=== PATIENT | male | born 1995 | race Caucasian/White ===

== ENCOUNTER 2023-12-28 17:22 | Emergency (ER) | payer SELFPAY ==
[~2023-12-28] VITALS: Ht 172.7 cm; Wt 61.3 kg
[2023-12-28 17:23] VITALS: BP 122/80; TEMP 97.6; O2SAT 98
== END 2023-12-28 19:30 | disposition left against medical advice (07) ==
LOC: M ED 17:22
DX: Z53.21 Procedure and treatment not carried out due to patient leaving prior to being seen by health care provider (principal)

== ENCOUNTER 2023-12-29 09:15 | Emergency (ER) | payer SELFPAY ==
[~2023-12-29] VITALS: Ht 172.7 cm; Wt 62.1 kg
[2023-12-29 11:43] VITALS: BP 120/76; TEMP 97.9; O2SAT 100
[2023-12-29] MEDS ORDERED: AUGMENTIN 875 MG TAB PO ONE (13:40)
== END 2023-12-29 14:08 | disposition home or self-care (01) ==
LOC: M ED 09:15
DX: K04.7 Periapical abscess without sinus (principal); F17.200 Nicotine dependence, unspecified, uncomplicated

== ENCOUNTER 2024-07-03 20:35 | Emergency (ER) | payer OTHER, SELFPAY ==
[~2024-07-03] VITALS: Ht 170.2 cm; Wt 63.6 kg
[2024-07-03 20:45] VITALS: TEMP 98.5
[2024-07-03] MEDS: LORazepam 2 MG/ML 1ML VIAL IV STA ×2 (21:47→22:56)
[2024-07-03 22:01] LABS: VENOUS BASE EXCESS 4.5 (-2.0-2.0); VENOUS HCO3 23.1 MMOL/L (23.0-27.0); VENOUS O2 SATURATION 92.6 % (60.0-80.0); VENOUS PARTIAL PRESSURE CO2 20.8 mmHg (38.0-50.0); VENOUS PARTIAL PRESSURE O2 49.9 mmHg (30.0-50.0); VENOUS STANDARD HCO3 28.4 MMOL/L; VENOUS TOTAL CO2 23.8 MMOL/L (24.0-28.0)
[2024-07-03 22:02] LABS: BASO % 0.4 % (0.0-1.0); EOS % 0.1 % (0.0-3.0); HEMATOCRIT 37.4 % (42.0-52.0); HEMOGLOBIN 13.1 g/dl (13.5-17.5); LYMPH # 0.9 10^3/uL (1.5-5.0); LYMPH % 10.5 % (24.0-44.0); MEAN CORPUSCULAR HEMOGLOBIN 29.4 pg (27.0-33.0); MONO # 1.1 10^3/uL (0.0-0.8); MONO % 11.9 % (2.0-8.0); NEUTROPHILS # 6.8 10^3/uL (1.5-8.5); NEUTROPHILS % 76.9 % (36.0-66.0); PLATELET COUNT, AUTOMATED 290 10^3/uL (150-450); RED BLOOD COUNT 4.45 10^6/uL (4.30-6.10); WHITE BLOOD COUNT 8.9 10^3/uL (4.0-10.0)
[2024-07-03 22:03] LABS: VENOUS PH 7.664 UNITS (7.330-7.430)
[2024-07-03 22:31] LABS: BLOOD UREA NITROGEN 15 MG/DL (9-23); CARBON DIOXIDE LEVEL 21 MMOL/L (20-31); CHLORIDE LEVEL 102 MMOL/L (98-107); CREATININE FOR GFR 0.88 MG/DL (0.70-1.30); GLOMERULAR FILTRATION RATE > 60.0 (>60); GLUCOSE, FASTING 126 MG/DL (60-100); MAGNESIUM LEVEL 1.8 MG/DL (1.8-2.4); POTASSIUM SERUM 3.3 MMOL/L (3.5-5.1); SODIUM LEVEL 137 MMOL/L (136-145)
[2024-07-03 22:33] LABS: THYROID STIMULATING HORMONE 0.652 uIU/ML (0.55-4.78)
[2024-07-03] MEDS: NS 500 ML IV ONE (23:13)
[2024-07-04 01:00] VITALS: BP 128/73; O2SAT 99
== END 2024-07-04 01:19 | disposition home or self-care (01) ==
LOC: M ED 20:35
DX: F41.9 Anxiety disorder, unspecified (principal); R00.0 Tachycardia, unspecified; I45.81 Long QT syndrome; F17.210 Nicotine dependence, cigarettes, uncomplicated; F12.10 Cannabis abuse, uncomplicated; F10.10 Alcohol abuse, uncomplicated
CPT/HCPCS: 80048; 82803; 83735; 84439; 84443; 85025; 93005; 96361; 96374; 96375; 99284; J2060

== ENCOUNTER 2024-09-16 10:54 | Emergency (ER) | payer OTHER ==
[~2024-09-16] VITALS: Ht 175.3 cm; Wt 63.0 kg
[2024-09-16 11:26] VITALS: BP 117/59; TEMP 97.7; O2SAT 100
== END 2024-09-16 12:35 | disposition left against medical advice (07) ==
LOC: M ED 10:54
DX: Z53.21 Procedure and treatment not carried out due to patient leaving prior to being seen by health care provider (principal)

== ENCOUNTER 2025-05-09 21:00 | Emergency (ER) | payer OTHER ==
[~2025-05-09] VITALS: Ht 172.7 cm; Wt 61.9 kg
[2025-05-09] MEDS: ACETAMINOPHEN 500 MG TAB PO ONE (22:16)
[2025-05-09] MEDS: CEPHALEXIN 500 MG CAP PO ONE (23:36)
[2025-05-09] MEDS: DERMABOND TOPICAL SKIN ADHESIVE TOP ONE (23:37)
[2025-05-09] MEDS ORDERED: CEPH500C PO (23:45)
[2025-05-09 23:49] VITALS: BP 115/84; TEMP 97.6; O2SAT 100
== END 2025-05-09 23:48 | disposition home or self-care (01) ==
LOC: M ED 21:00
DX: S61.012A Laceration without foreign body of left thumb without damage to nail, initial encounter (principal); Y92.019 Unspecified place in single-family (private) house as the place of occurrence of the external cause; Y93.9 Activity, unspecified; Y99.9 Unspecified external cause status; W26.0XXA Contact with knife, initial encounter; K21.9 Gastro-esophageal reflux disease without esophagitis; F41.0 Panic disorder [episodic paroxysmal anxiety]; F17.210 Nicotine dependence, cigarettes, uncomplicated; F12.10 Cannabis abuse, uncomplicated; Z79.2 Long term (current) use of antibiotics

== ENCOUNTER 2025-07-04 14:46 | Emergency (ER) | payer OTHER ==
[~2025-07-04] VITALS: Ht 175.3 cm; Wt 65.4 kg
[~2025-07-04 14:46] MED LIST: CEPH500C PO
[2025-07-04 17:08] VITALS: BP 127/81; TEMP 98; O2SAT 98
== END 2025-07-04 18:08 | disposition home or self-care (01) ==
LOC: M ED 14:46
DX: T16.2XXA Foreign body in left ear, initial encounter (principal)